=== PATIENT | female | born 1955 | race Caucasian/White ===

== ENCOUNTER 2017-12-12 09:00 | Outpatient (RCR) | payer MEDICAID, SELFPAY | END 2018-01-09 13:55 | disposition home or self-care (01) | LOC: PT 09:00 | PROVIDERS: Family Provider Internal Medicine Adolescent Medicine; PCP Internal Medicine Adolescent Medicine; Visit Provider Internal Medicine Adolescent Medicine | DX: M54.5 Low back pain (principal) | CPT/HCPCS: 97110; 97163 ==

== ENCOUNTER → 2018-02-22 09:14 | Outpatient (CLI) | payer MEDICAID, SELFPAY ==
--- NOTE | 2018-02-22 09:21 | CA_ITS ---
PROCEDURE: 2-D M-mode and color Doppler study INDICATIONS FOR THE TEST: Chest pain COPD Heart MurmurX Tobacco Smoking Palpitations Fatigue Syncope Edema Hypertension Diabetes Mellitus Rheumatic Fever SOB LEAL Obesity Hyperlipidemia Family History HD Additional History PATIENT INFORMATION HEIGHT: 64 WEIGHT:214 GENDER: Female B/P:162/72 2-D/M-MODE INTERPRETATION: 2-D MEASUREMENTS OBSERVED VALUES IN CMS Right Ventricular Dimension (RVDd) 3.8 Interventricular Septum (Thickness)(IVsd) 1.0 Left Ventricular Internal Dimensions(LVIDd) 5.6 Left Ventricular Posterior Wall (Thickness)(LVPWd) .9 Aortic Root 3.2 Aortic Cusp Separation 1.9 Left Atrial Dimensions (LAD) 4.0 2D 1. Left atrium is mildly enlarged, left ventricle is normal size, there is no concentric left ventricular hypertrophy, visually estimated ejection fraction 55% with no signal wall motion abnormality. 2. The right atrium and right ventricle are mildly enlarged with normal contractility. 3. The aortic valve is minimally thickened and fibrosed. 4. The mitral and tricuspid valve are grossly normal. 5. The pulmonic valve is poorly visualized. 6. No significant pericardial effusion noted. DOPPLER INTERROGATION: Doppler interrogation of the aortic, mitral and tricuspid valvular presence of mild mitral and tricuspid regurgitation, tricuspid regurgitation jet velocity insufficient for calculation of the right ventricular systolic pressure, diastolic parameters are inconclusive CONCLUSION: 1. Mild biatrial enlargement, normal left ventricular size, visually estimated ejection fraction 55% with no regional wall motion abnormality, diastolic parameters are inconclusive. 2. Mildly enlarged right ventricle with normal contractility. 3. Mild mitral and tricuspid regurgitation 4. No significant pericardial effusion noted.
== END ==
PROVIDERS: Family Provider Internal Medicine Adolescent Medicine; PCP Internal Medicine Adolescent Medicine; Visit Provider Internal Medicine Adolescent Medicine
DX: R01.1 Cardiac murmur, unspecified (principal); I10 Essential (primary) hypertension
CPT/HCPCS: 93306

== ENCOUNTER 2018-04-11 07:30 | Outpatient (RCR) | payer MEDICAID, SELFPAY ==
--- NOTE | 2018-02-26 12:09 | HMH.PTOPEV ---
PT Outpatient Evaluation Rehab PT Outpatient Evaluation Start: 02/26/18 11:42 Freq: Status: Active Protocol: Document 02/26/18 11:43 LAKISHA (Rec: 02/26/18 12:08 [email or web address] [id number]) Electronically Signed By Samuel Hardy, PT 02/26/18 11:43 Outpatient Therapy Subjective History Subjective History Pt. is a 62 year old white female who presents to outpatient PT with L shoulder/ arm pain of insidious onset several months ago that has progressively gotten worse. Pt . reports no diagnostic imaging on her L shoulder or neck. Pt. reports she has pain when reaches and uses her arm in certain positions. PMH include MRI on her brain that was negative for a stroke, 1 heart attack 5 years ago that was stress related, echocardiogram, HTN, and high cholesterol per pt. report. Current medications include beta-blockers, and for HTN. Chief Complaint Pain Paresthesia Symptom Type Ache Throb Dull Numbness Tingling Shooting Symptoms Relieved By Rest/Positioning OTC Meds Symptoms Aggravated By Physical Activity Lifting Prior Functional Limitations None Current Functional Limitations Reaching Lifting Sleeping Recreation Activity Symptom Description Activity Dependent Level of pain today (0-10) 0 Pain scale - at its best (0-10) 0 Pain scale - at its worst (0-10) 4 Shoulder/Elbow Eval Shoulder Objective Measurements Palpation Tenderness tenderness shoulder exam standard left tenderness over the bicipital tendon left shoulder exam standard tenderness over the SA bursa shoulder left exam standard Shoulder Palpation Findings Tenderness Shoulder Palpation Overall Comment grade 3 +TTP Posture Shoulder Posture Sitting Position (L) Rounded (R) Rounded (L) Forward (R) Forward Shoulder Posture Standing Position (L)
== END 2018-05-03 11:37 | disposition home or self-care (01) ==
LOC: PT 07:30
PROVIDERS: Visit Provider Internal Medicine Adolescent Medicine
DX: M25.512 Pain in left shoulder (principal)
CPT/HCPCS: 97012; 97014; 97033; 97110; 97112; 97140; 97163; 97164; G0283

== ENCOUNTER → 2018-11-02 17:50 | Outpatient (CLI) | payer MEDICARE, SELFPAY ==
[2018-11-02 18:35] LABS: Troponin I < 0.02 ng/ml (0.00-0.06)
== END ==
PROVIDERS: Visit Provider Nurse Practitioner Family
DX: R07.9 Chest pain, unspecified (principal)
CPT/HCPCS: 84484

== ENCOUNTER → 2021-12-29 13:39 | Outpatient (CLI) | payer MEDICARE, SELFPAY ==
--- NOTE | 2021-12-29 | CA_ITS ---
FINAL REPORT TECHNIQUE: Color Doppler, duplex Doppler and ashley scale sonography of the bilateral neck arterial vasculature was performed. Velocities were measured in the carotid arteries. Stenosis evaluation based on the validated velocity criteria. CLINICAL HISTORY: .Headaches with dizziness, Family Hx-ASCVD, HTN FINDINGS: The peak systolic velocity of the right common carotid artery is 50 cm/s. The peak systolic velocity of the right internal carotid artery is 97 cm/s and end diastolic velocity 26 cm/s. The ICA/CCA ratio is 1.9. A mild to moderate amount of heterogeneous plaque is present. The right external carotid artery is patent. The right vertebral artery is patent with antegrade flow. The peak systolic velocity of the left common carotid artery is 90 cm/s. The peak systolic velocity of the left internal carotid artery is 106 cm/s and end diastolic velocity 21 cm/s. The ICA/CCA ratio is 1.3. A mild to moderate amount of heterogeneous plaque is present. The left external carotid artery is patent.The left vertebral artery is patent with antegrade flow. IMPRESSION: Less than 50% bilateral carotid stenosis. Bilateral patent vertebral arteries with antegrade flow. Reviewed, Interpreted and Dictated by Donell Condon III, MD Transcribed by Lacey Goff Authenticated and . [facility]
--- NOTE | 2021-12-29 13:48 | MR_ITS ---
FINAL REPORT CLINICAL HISTORY: DIZZINESS , BLURRY VISION FINDINGS: Multiplanar MR imaging of the brain was performed without contrast. There is no evidence of intracranial hemorrhage or mass. The ventricular size is normal. There is no evidence of shift of the midline structures. No abnormal extra-axial fluid collection is identified. The posterior fossa and brainstem have an unremarkable appearance. No area of abnormal restricted diffusion is identified. Normal major vessel vascular flow voids are seen. IMPRESSION: Unremarkable brain with no acute intracranial abnormality. Reviewed, Interpreted and Dictated by Donell Condon III, MD Transcribed by Antonieta Ingram Authenticated and [facility]
== END ==
PROVIDERS: PCP Internal Medicine Adolescent Medicine; Visit Provider Internal Medicine Adolescent Medicine
DX: R42 Dizziness and giddiness (principal); R51.9 Headache, unspecified; H53.8 Other visual disturbances
CPT/HCPCS: 70551; 93880